=== PATIENT | male | born 1950 | race Caucasian/White ===

== ENCOUNTER 2016-05-04 13:15 | Emergency (ER) | payer OTHER ==
[2016-05-04 14:21] LABS: BASOPHIL 0.4 % (0-2); EOSINOPHIL 1.1 % (0-5); HCT 34.2 % (42.0-52.0); HGB 11.8 g/dl (13.2-18.0); LYMPHOCYTE 12.4 % (15-48); MCH 32.2 pg (25.0-31.0); MCHC 34.5 g/dL (32.0-36.0); MCV 93.4 fL (78.0-100.0); MONOCYTE 12.6 % (0-12); MPV 9.2 fL (6.0-9.5); NEUTROPHIL 73.5 % (41-80); PLT 190 K/uL (150-400); RBC 3.66 M/uL (4.70-6.00); RDW 12.1 % (11.5-14.0); WBC 7.8 K/uL (4.0-10.5)
[2016-05-04 14:35] LABS: INR 1.06 (0.9-1.2); PROTHROMBIN TIME 13.4 SECONDS (11.7-14.0)
[2016-05-04 14:45] LABS: ALBUMIN 4.3 g/dL (3.4-4.8); BILIRUBIN - TOTAL 0.4 mg/dL (0.1-1.0); GLOBULIN (CALCULATION) 2.2 g/dL (2.2-4.2); POTASSIUM 4.5 mmol/L (3.5-5.1); TOTAL PROTEIN 6.5 g/dL (6.4-8.3)
[2016-05-04 14:49] LABS: CKMB 3.04 ng/mL (0.97-4.94); TROPONIN T 0.013 ng/mL
[2016-05-04 14:57] LABS: BILIRUBIN NEGATIVE (NEGATIVE); BLOOD 3+ Ery/uL (NEGATIVE); CLARITY CLEAR (CLEAR); COLOR YELLOW (YELLOW); GLUCOSE (U) 3+ mg/dL (NORMAL); KETONE (U) NEGATIVE (NEGATIVE); LEUKOCYTES NEGATIVE Leu/uL (NEGATIVE); NITRITE NEGATIVE (NEGATIVE); PROTEIN 1+ mg/dL (NEGATIVE); UROBILINOGEN 0.2 mg/dL (0.2-1.0)
[2016-05-04 15:03] LABS: BACTERIA TRACE; MUCOUS TRACE; SQUAMOUS EPITHELIAL CELLS RARE; URINARY RBC 20-50
[2016-05-04 15:09] LABS: AMPHETAMINES NEGATIVE (NEGATIVE); BARBITURATES NEGATIVE (NEGATIVE); BENZODIAZEPINES NEGATIVE (NEGATIVE); COCAINE NEGATIVE (NEGATIVE); MARIJUANA (THC) NEGATIVE (NEGATIVE); METHADONE NEGATIVE (NEGATIVE); TRICYCLIC ANTIDEPRESSANT NEGATIVE (NEGATIVE)
[2016-05-04 15:30] LABS: LACTIC ACID 1.6 mmol/L (0.5-2.2)
== END 2016-05-04 18:53 | disposition home or self-care (01) ==
LOC: FER 13:15
PROVIDERS: Emergency Medicine
DX: E11.65 Type 2 diabetes mellitus with hyperglycemia (principal); I10 Essential (primary) hypertension; S92.411A Displaced fracture of proximal phalanx of right great toe, initial encounter for closed fracture; L03.90 Cellulitis, unspecified; R42 Dizziness and giddiness; R82.90 Unspecified abnormal findings in urine; R29.700 NIHSS score 0; Z88.0 Allergy status to penicillin
CPT/HCPCS: 36415; 70450; 71010; 73630; 80053; 80061; 80305; 81001; 82140; 82550; 82553; 83605; 83874; 84484; 85025; 85610; 85730; 87040; 87088; 93005; G0480; J2405

== ENCOUNTER 2016-05-09 11:54 | Inpatient (IN) | payer OTHER ==
[2016-05-09 14:27] LABS: BASOPHIL 0.7 % (0-2); EOSINOPHIL 3.6 % (0-5); HCT 32.2 % (42.0-52.0); HGB 11.1 g/dl (13.2-18.0); LYMPHOCYTE 21.8 % (15-48); MCH 31.8 pg (25.0-31.0); MCHC 34.5 g/dL (32.0-36.0); MCV 92.3 fL (78.0-100.0); MONOCYTE 7.1 % (0-12); MPV 9.4 fL (6.0-9.5); NEUTROPHIL 66.8 % (41-80); PLT 226 K/uL (150-400); RBC 3.49 M/uL (4.70-6.00); WBC 6.9 K/uL (4.0-10.5)
[2016-05-09 14:40] LABS: BILIRUBIN NEGATIVE (NEGATIVE); BLOOD NEGATIVE Ery/uL (NEGATIVE); CLARITY CLEAR (CLEAR); COLOR YELLOW (YELLOW); GLUCOSE (U) 3+ mg/dL (NORMAL); KETONE (U) NEGATIVE (NEGATIVE); LEUKOCYTES NEGATIVE Leu/uL (NEGATIVE); NITRITE NEGATIVE (NEGATIVE); PROTEIN NEGATIVE (NEGATIVE); SPECIFIC GRAVITY 1.015 (1.001-1.030); UROBILINOGEN 0.2 mg/dL (0.2-1.0)
[2016-05-09 14:47] LABS: BILIRUBIN - TOTAL 0.2 mg/dL (0.1-1.0); CREATININE 0.8 mg/dL (0.7-1.2); GLOBULIN (CALCULATION) 2.2 g/dL (2.2-4.2); POTASSIUM 3.8 mmol/L (3.5-5.1); TOTAL PROTEIN 6.2 g/dL (6.4-8.3)
[2016-05-09 14:51] LABS: AMPHETAMINES NEGATIVE (NEGATIVE); BENZODIAZEPINES POSITIVE (NEGATIVE); COCAINE NEGATIVE (NEGATIVE); MARIJUANA (THC) NEGATIVE (NEGATIVE)
[2016-05-09 14:52] LABS: BARBITURATES NEGATIVE (NEGATIVE); METHADONE NEGATIVE (NEGATIVE); TRICYCLIC ANTIDEPRESSANT NEGATIVE (NEGATIVE)
[2016-05-09 20:34] LABS: CKMB 2.72 ng/mL (0.97-4.94); TROPONIN T < 0.010 ng/mL
[2016-05-10 04:42] LABS: HCT 31.4 % (42.0-52.0); HGB 10.8 g/dl (13.2-18.0); MCH 31.8 pg (25.0-31.0); MCHC 34.4 g/dL (32.0-36.0); MCV 92.4 fL (78.0-100.0); MPV 9.3 fL (6.0-9.5); RBC 3.4 M/uL (4.70-6.00); RDW 11.9 % (11.5-14.0); WBC 6.6 K/uL (4.0-10.5)
[2016-05-10 04:54] LABS: CREATININE 0.8 mg/dL (0.7-1.2); POTASSIUM 3.3 mmol/L (3.5-5.1)
[2016-05-11 04:29] LABS: HCT 32.7 % (42.0-52.0); HGB 11.2 g/dl (13.2-18.0); MCH 31.7 pg (25.0-31.0); MCHC 34.3 g/dL (32.0-36.0); MCV 92.6 fL (78.0-100.0); MPV 9.5 fL (6.0-9.5); RBC 3.53 M/uL (4.70-6.00); RDW 12.2 % (11.5-14.0); WBC 6.9 K/uL (4.0-10.5)
[2016-05-11 04:55] LABS: CREATININE 0.8 mg/dL (0.7-1.2); POTASSIUM 3.8 mmol/L (3.5-5.1)
--- NOTE | 2016-05-12 11:22 | NUR ---
OLOP EVALUATION COMPLETED AT BEDSIDE. SEE NOTE IN CHART
== END 2016-05-12 13:20 | disposition home or self-care (01) | DRG 304 ==
LOC: FER 11:54 → FICU 15:14
PROVIDERS: Emergency Medicine; Internal Medicine; ADMIT Internal Medicine
DX: I16.1 Hypertensive emergency (principal); G93.41 Metabolic encephalopathy; F10.231 Alcohol dependence with withdrawal delirium; E11.40 Type 2 diabetes mellitus with diabetic neuropathy, unspecified; E11.65 Type 2 diabetes mellitus with hyperglycemia; Z59.0 Homelessness; F17.200 Nicotine dependence, unspecified, uncomplicated; M14.671 Charcot's joint, right ankle and foot; Z79.4 Long term (current) use of insulin
CPT/HCPCS: 36415; 70450; 71010; 73700; 73718; 80048; 80053; 80202; 80305; 81003; 82550; 82553; 82962; 84484; 85025; 85651; 86140; 87040; 87088; 93005; 93922; 94640; G0480; J1815; J1956; J2060; J3360; J3370; J3411; J3475; J7060